=== PATIENT | female | born 2000 | race Two or more races ===

== ENCOUNTER 2025-02-28 13:03 | Emergency (ER) | payer MEDICAID, OTHER ==
[~2025-02-28] VITALS: Ht 177.8 cm; Wt 96.6 kg
[2025-02-28] MEDS: ACETAMINOPHEN 325 MG TAB PO ONE (15:41)
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
--- NOTE | 2025-02-28 16:02 | DVH ---
X-ray left hand Technique REASON FOR EXAM: broken finger FINDINGS/IMPRESSION: Fracture of the base of the middle phalanx of the left 3rd digit
[2025-02-28 17:35] VITALS: BP 133/88; PULSE 57; RESP 18; TEMP 98.1; O2SAT 100
== END 2025-02-28 17:41 | disposition home or self-care (01) ==
LOC: ER 13:03
DX: S62.653A Nondisplaced fracture of middle phalanx of left middle finger, initial encounter for closed fracture (principal); X58.XXXA Exposure to other specified factors, initial encounter; Y93.89 Activity, other specified; Y92.89 Other specified places as the place of occurrence of the external cause; Y99.8 Other external cause status
CPT/HCPCS: 29130; 73130